=== PATIENT | male | born 1980 | race Caucasian/White ===

== ENCOUNTER → 2021-02-05 | Outpatient (CLI) | payer BC ==
--- NOTE | 2021-02-05 16:50 | Diagnostic Imaging Report ---
PROCEDURE: US Scrotum. TECHNIQUE: Multiple real-time grayscale images were obtained over the scrotum in various projections bilaterally. INDICATION: Right testicular swelling for one month. Right testicle measures 5.1 x 4.6 x 6.0 cm and the left testicle measures 4.5 x 2.4 x 3.0 cm. There appears to be a large cyst located within the right testicle measuring 6.0 x 4.2 x 6.1 cm. No internal vascularity, complexity or septations are seen. Left testicle is unremarkable. There is blood flow to both testes. Epididymides are unremarkable. No varicocele or hydrocele is seen. IMPRESSION: Large right testicular cyst. No other significant abnormality is seen. Dictated by: Dictated on workstation # [id number]
== END ==
LOC: RAD 12:30
PROVIDERS: ATTEND Nurse Practitioner Family
DX: N44.2 Benign cyst of testis (principal)
CPT/HCPCS: 76870